=== PATIENT | male | born 1950 | race Caucasian/White ===

== ENCOUNTER 2018-01-17 07:45 | Day surgery (SDC) | payer OTHER, BC ==
[2018-01-13 09:43] VITALS: BMI 24.3
[2018-01-17] MEDS ORDERED: PROPOFOL 20 ML ONE ×3 (07:57→09:41)
[2018-01-17 08:22] VITALS: TEMP 97.8
[2018-01-17] MEDS ORDERED: LIDOCAINE HCL/PF 2% SDV 5ML VIAL ONE (08:26)
[2018-01-17 11:12] VITALS: BP 101/60; PULSE 77
== END 2018-01-17 10:55 | disposition home or self-care (01) ==
LOC: FASU-ENDO 07:45
PROVIDERS: ATTEND Internal Medicine Gastroenterology
PROC: 0DJD8ZZ Inspection of Lower Intestinal Tract, Via Natural or Artificial Opening Endoscopic (ICD-10-PCS; principal; 2018-01-17 09:36)
DX: Z86.010 Personal history of colon polyps (principal)